=== PATIENT | male | born 2000 | race Caucasian/White ===

== ENCOUNTER 2023-05-21 23:47 | Emergency (ER) | payer MEDICAID ==
[~2023-05-21] VITALS: Ht 182.9 cm; Wt 82.0 kg
[2023-05-22 00:14] VITALS: O2SAT 98
[2023-05-22 00:54] VITALS: BP 125/81; PULSE 89; RESP 20; TEMP 97.8
[2023-05-22] MEDS ORDERED: ACET-2708 MT (01:00)
== END 2023-05-22 01:12 | disposition home or self-care (01) ==
LOC: ER 05-22
DX: J06.9 Acute upper respiratory infection, unspecified (principal)
CPT/HCPCS: 71045; 93005; 99283

== ENCOUNTER 2023-06-14 19:04 | Emergency (ER) | payer MEDICAID, OTHER ==
[~2023-06-14] VITALS: Ht 182.9 cm; Wt 84.0 kg
[~2023-06-14 19:04] MED LIST: ACET-2708 MT
[2023-06-14 20:17] VITALS: BP 112/70; PULSE 71; RESP 16; TEMP 98.1; O2SAT 98
[2023-06-14] MEDS ORDERED: ERYT1OIN6 EACHEYE (22:08)
[2023-06-14] MEDS ORDERED: ALBU05 NEB (22:19)
[2023-06-14] MEDS ORDERED: ALBU6.7H15 INH (22:19)
== END 2023-06-14 22:40 | disposition home or self-care (01) ==
LOC: ER 19:04
DX: J02.9 Acute pharyngitis, unspecified (principal); R05.9 Cough, unspecified; H10.9 Unspecified conjunctivitis; F12.10 Cannabis abuse, uncomplicated
CPT/HCPCS: 71045; 87070; 87430; 99284

== ENCOUNTER 2023-06-19 13:43 | Emergency (ER) | payer MEDICAID ==
[~2023-06-19] VITALS: Ht 182.9 cm; Wt 90.0 kg
[~2023-06-19 13:43] MED LIST changes: +ALBU05 NEB; +ALBU6.7H15 INH; +ERYT1OIN6 EACHEYE
[2023-06-19 13:49] VITALS: O2SAT 96
[2023-06-19 16:30] VITALS: BP 122/66; PULSE 71; RESP 19; TEMP 98.2
[2023-06-19] MEDS: ACETAMINOPHEN 650MG/20.3ML UDC PO ONE (17:04)
== END 2023-06-19 17:44 | disposition home or self-care (01) ==
LOC: ER 13:43
DX: J02.9 Acute pharyngitis, unspecified (principal); F12.10 Cannabis abuse, uncomplicated; Z79.899 Other long term (current) drug therapy
CPT/HCPCS: 87070; 87430; 99283